=== PATIENT | male | born 1965 | race Two or more races ===

== ENCOUNTER 2024-10-04 11:40 | Day surgery (SDC) | payer MEDICARE, MEDICAID, SELFPAY ==
[2024-10-01 17:31] LABS: Basophils # (Auto) 0.1 Thou/mm3 (0.0-0.2); Basophils % (Auto) 0 % (0-2.5); Eosinophils # (Auto) 0.9 Thou/mm3 (0.0-0.5); Eosinophils % (Auto) 7 % (0-10); Immature Granulocytes % (Auto) 0 % (0-0); Immature Granulocytes Auto 0.05 Thou/mm3 (0.00-0.00); Lymphocytes % (Auto) 15 % (10-50); Mean Corpuscular HGB Conc 34.1 g/dl (31.0-37.0); Mean Corpuscular Hemoglobin 29.4 pg (25.0-35.0); Mean Corpuscular Volume 86 fL (80-100); Monocytes # (Auto) 1.5 Thou/mm3 (0.0-0.8); Monocytes % (Auto) 11 % (0-12); Neutrophils % (Auto) 67 % (37-80); Nucleated Red Blood Cell % 0 /100 WBC (0); Platelet Count 211 Thou/mm3 (140-440); RDW Standard Deviation 41.9 fL (35.1-43.9); Red Blood Count 4.77 Miln/mm3 (4.50-5.90); White Blood Count 13.5 Thou/mm3 (3.8-10.6)
[2024-10-01 17:39] LABS: Partial Thromboplastin Time 25.5 Seconds (22.0-36.0); Prothrombin Time 10.7 Seconds (9.0-12.2)
[2024-10-01 17:44] LABS: Alanine Aminotransferase 16 U/L (10-49); Albumin, Serum 4.2 gm/dL (3.4-4.8); Albumin/Globulin Ratio 1.6 (1.2-2.2); Alkaline Phosphatase 79 U/L (46-116); Anion Gap 5 (7-16); Aspartate Amino Transferase 13 U/L (0-34); BUN/Creatinine Ratio 12 Ratio (12-20); Bilirubin,Total 0.3 mg/dL (0.3-1.2); Blood Urea Nitrogen 13 mg/dL (9-23); Calcium 9.1 mg/dL (8.3-10.6); Calcium (Corrected) 9.1 mg/dL (8.5-10.1); Carbon Dioxide 29.8 mMol/L (20.0-31.0); Chloride 106 mMol/L (98-107); Creatinine (Component) 1.1 mg/dL (0.6-1.3); Globulin 2.7 gm/dL (2.3-3.5); Glucose 103 mg/dL (74-106); Osmolality,Calculated 281 (275-295); Potassium 4.9 mMol/L (3.4-5.1); Sodium 141 mMol/L (136-145); Total Protein 6.9 gm/dL (5.7-8.2); eGFR > 60 See Note
[2024-10-04] VITALS (8 sets, daily range): BP systolic 94–147; BP diastolic 55–86; PULSE 59–80; RESP 12–20; TEMP 36.5–37.2; O2SAT 94–97; BMI 38.1
[2024-10-04] MEDS: RINGERS LACTATED 1000 ML 1,000 ML 100 ML IV (12:53)
--- NOTE | 2024-10-04 13:21 | SUR.PHASEII ---
pt received from OR in recovery bay 1. pt asleep but responds to voice, breathing unlabored on 2l nc. v/s stable. report received from Dr. Lovelace and Sulema WELDON.
--- NOTE | 2024-10-04 14:20 | SUR.PHASEII ---
pt awake and alert, breathing unlabored on room air. v/s stable. pt able to ambulate to wheelchair with steady gait. d/c instructions given with [facility] manager Maisha in room, all questions answered. pt d/c via wheelchair with all belongings.
== END 2024-10-04 14:20 | disposition home or self-care (01) ==
PROVIDERS: PCP Family Medicine; Referring Provider Surgery; Visit Provider Surgery
PROC: 0DJD8ZZ Inspection of Lower Intestinal Tract, Via Natural or Artificial Opening Endoscopic (ICD-10-PCS; CPT 45378; principal; 2024-10-04 13:00)
DX: Z12.11 Encounter for screening for malignant neoplasm of colon (principal); I11.0 Hypertensive heart disease with heart failure; I50.21 Acute systolic (congestive) heart failure; E78.1 Pure hyperglyceridemia; E78.6 Lipoprotein deficiency; E11.65 Type 2 diabetes mellitus with hyperglycemia; E78.5 Hyperlipidemia, unspecified
CPT/HCPCS: G0121; 36415; 80053; 85025; 85610; 85730; J7120